=== PATIENT | male | born 1990 | race Caucasian/White ===

== ENCOUNTER 2019-12-28 23:06 | Inpatient (IN) | payer MEDICAID ==
[~2019-12-28] VITALS: Ht 170.2 cm; Wt 83.9 kg
[2019-12-28 23:20] VITALS: BP 97/76
[2019-12-28] MEDS ORDERED: NACL 0.9% 1,000 ML IV ONE (23:45)
[2019-12-28] MEDS ORDERED: ONDANSETRON 4 MG/2 ML VIAL IVP ONE (23:55)
[2019-12-29 00:10] LABS: BASOPHILS % (AUTO) 0.1 % (0.0-2.0); EOSINOPHILS # (AUTO) 0.2 K/uL (0-0.4); EOSINOPHILS % (AUTO) 1.3 % (0.0-4.0); HEMATOCRIT 22.7 % (36-52); HEMOGLOBIN 7.9 g/dL (12.0-18.0); LYMPHOCYTES # (AUTO) 6.3 K/uL (2.0-11.5); LYMPHOCYTES % (AUTO) 44.4 % (20.5-51.1); MEAN CORPUSCULAR HEMOGLOBIN 31 pg (27-31); MEAN CORPUSCULAR HGB CONC 35 g/dL (33-37); MEAN CORPUSCULAR VOLUME 89.6 fL (80-94); MONOCYTES # (AUTO) 0.8 K/uL (0.8-1.0); MONOCYTES % (AUTO) 5.3 % (1.7-9.3); NEUTROPHILS # (AUTO) 6.9 K/uL (1.8-7.7); NEUTROPHILS % (AUTO) 48.9 % (42.2-75.2); PLATELET COUNT (AUTO) 226 K/uL (140-450); RED BLOOD CELL COUNT(AUTO) 2.54 MIL/uL (4.20-6.10); RED CELL DISTRIBUTION WIDTH 12.4 % (11.6-13.7); WHITE BLOOD COUNT (AUTO) 14.1 K/uL (4.8-10.8)
[2019-12-29 00:26] LABS: ALBUMIN 3.8 g/dL (3.4-5.0); ANION GAP 13.4 (8-16); CARBON DIOXIDE 24.6 mmol/L (21-32); TOTAL BILIRUBIN 0.4 mg/dL (0.0-1.0)
[2019-12-29 00:30] LABS: PROTHROMBIN TIME 10.6 secs (10.8-13.4)
[2019-12-29 04:12] VITALS: BP 93/52
[2019-12-29] MEDS ORDERED: NACL 0.9% 1,000 ML IV ONE (05:10)
[2019-12-29] MEDS ORDERED: ACETAMINOPHEN 325 MG TAB PO PRN ×2 (05:10→06:30)
[2019-12-29] MEDS ORDERED: ONDANSETRON 4 MG/2 ML VIAL IVP PRN ×2 (05:10→06:30)
[2019-12-29] MEDS ORDERED: NACL 0.9% 500 ML IV SCH ×2 (05:25→08:01)
[2019-12-29] MEDS ORDERED: ACETAMINOPHEN 325 MG TAB ONE (05:45)
[2019-12-29] MEDS ORDERED: NACL 0.9% 1,000 ML IV SCH (06:30)
[2019-12-29] MEDS ORDERED: HYDROcodone/APAP 5/325 MG 1 TAB TAB PO PRN (06:30)
[2019-12-29] MEDS ORDERED: ZOLPIDEM 5 MG TAB PO PRN (06:30)
[2019-12-29] MEDS ORDERED: MORPHINE SULFATE 2 MG/ML SYR IVP PRN (06:30)
[2019-12-29] MEDS ORDERED: LORazepam 2 MG/ML VIAL IM/IVP PRN (06:30)
[2019-12-29] MEDS ORDERED: DOCUSATE SODIUM 100 MG GELCAP PO PRN (06:30)
[2019-12-29] MEDS ORDERED: metroNIDAZOLE 500 MG/NS PREMIX 100 ML IV SCH (07:01)
[2019-12-29 07:05] VITALS: BP 80/52
[2019-12-29 07:53] LABS: PROTHROMBIN TIME 11.3 secs (10.8-13.4)
[2019-12-29 08:13] LABS: CHOL/HDL RATIO 5.4 (1-4.5); FREE T4 (FREE THYROXINE) 1.06 ng/dL (0.76-1.46); THYROID STIMULATING HORMONE 5.22 uIU/mL (0.34-3.74)
[2019-12-29] MEDS: DEXT 5% / NACL 0.45% 1,000 ML IV SCH ×2 (08:24→16:20)
[2019-12-29 11:11] LABS: MAGNESIUM 2.6 mg/dL (1.8-2.4); PHOSPHORUS 2.5 mg/dL (2.5-4.9)
[2019-12-29] MEDS: PANTOPRAZOLE 40 MG INJ VIAL IVP SCH ×2 (11:13→20:23)
[2019-12-29] MEDS ORDERED: MIDAZOLAM 2 MG/2 ML VIAL ONE ×2 (11:58→11:59)
[2019-12-29] MEDS ORDERED: diphenhydrAMINE 50 MG/ML VIAL ONE (11:59)
[2019-12-29] MEDS ORDERED: fentaNYL citrate 0.05 MG/ML VIAL ONE (11:59)
[2019-12-29 12:00] VITALS: BP 94/50
[2019-12-29] MEDS ORDERED: fentaNYL citrate 0.05 MG/ML VIAL IVP ONE (13:50)
[2019-12-29] MEDS ORDERED: MIDAZOLAM 2 MG/2 ML VIAL IVP ONE (13:50)
[2019-12-29 16:00] VITALS: BP 95/56
[2019-12-29] MEDS: LACTULOSE 20 GM/30 ML UDC PO SCH ×2 (16:20→20:23)
[2019-12-29] MEDS: SENNA 8.6 MG TAB PO SCH (16:20)
[2019-12-29 20:00] VITALS: BP 111/66
[2019-12-29] MEDS: SUPREP BOWEL PREP KIT 354 ML SOLN.RECON PO SCH (20:23)
[2019-12-30] VITALS: BP 108/60
[2019-12-30] MEDS: DEXT 5% / NACL 0.45% 1,000 ML IV SCH ×3 (00:42→22:18)
[2019-12-30 04:00] VITALS: BP 104/51
[2019-12-30 06:00] LABS: BASOPHILS % (AUTO) 0.2 % (0.0-2.0); EOSINOPHILS # (AUTO) 0.2 K/uL (0-0.4); EOSINOPHILS % (AUTO) 2.6 % (0.0-4.0); LYMPHOCYTES # (AUTO) 3.7 K/uL (2.0-11.5); LYMPHOCYTES % (AUTO) 45.9 % (20.5-51.1); MEAN CORPUSCULAR HEMOGLOBIN 32 pg (27-31); MEAN CORPUSCULAR HGB CONC 35 g/dL (33-37); MEAN CORPUSCULAR VOLUME 91.6 fL (80-94); MONOCYTES # (AUTO) 0.4 K/uL (0.8-1.0); MONOCYTES % (AUTO) 5.4 % (1.7-9.3); NEUTROPHILS # (AUTO) 3.7 K/uL (1.8-7.7); NEUTROPHILS % (AUTO) 45.9 % (42.2-75.2); PLATELET COUNT (AUTO) 144 K/uL (140-450); RED BLOOD CELL COUNT(AUTO) 1.61 MIL/uL (4.20-6.10); RED CELL DISTRIBUTION WIDTH 12.6 % (11.6-13.7)
[2019-12-30 06:24] LABS: HEMATOCRIT 14.7 % (36-52); HEMOGLOBIN 5.1 g/dL (12.0-18.0)
[2019-12-30 06:31] LABS: ANION GAP 12.5 (8-16); CARBON DIOXIDE 23.7 mmol/L (21-32); POTASSIUM 3.2 mmol/L (3.5-5.1)
[2019-12-30 06:34] LABS: MAGNESIUM 1.8 mg/dL (1.8-2.4); PHOSPHORUS 3.5 mg/dL (2.5-4.9)
[2019-12-30 08:00] VITALS: BP 117/61
[2019-12-30] MEDS ORDERED: fentaNYL citrate 0.05 MG/ML VIAL ONE (08:03)
[2019-12-30] MEDS ORDERED: diphenhydrAMINE 50 MG/ML VIAL ONE (08:03)
[2019-12-30] MEDS ORDERED: MIDAZOLAM 2 MG/2 ML VIAL ONE (08:03)
[2019-12-30] MEDS: SENNA 8.6 MG TAB PO SCH (08:51)
[2019-12-30] MEDS: LACTULOSE 20 GM/30 ML UDC PO SCH ×2 (08:51→10:14)
[2019-12-30] MEDS: PANTOPRAZOLE 40 MG INJ VIAL IVP SCH ×2 (08:51→21:51)
[2019-12-30] MEDS: SUPREP BOWEL PREP KIT 354 ML SOLN.RECON PO SCH (08:51)
[2019-12-30 12:00] VITALS: BP 119/61
[2019-12-30] MEDS: FERROUS SULFATE 325 MG TABEC PO SCH ×2 (12:00→16:11)
[2019-12-30] MEDS ORDERED: diphenhydrAMINE 50 MG/ML VIAL IVP ONE (12:15)
[2019-12-30] MEDS ORDERED: MIDAZOLAM 2 MG/2 ML VIAL IVP ONE (12:15)
[2019-12-30] MEDS ORDERED: fentaNYL citrate 0.05 MG/ML VIAL IVP ONE (12:15)
[2019-12-30] MEDS: metroNIDAZOLE 500 MG TAB PO SCH ×2 (13:24→16:11)
[2019-12-30 14:50] LABS: BASOPHILS % (AUTO) 0.3 % (0.0-2.0); EOSINOPHILS # (AUTO) 0.2 K/uL (0-0.4); EOSINOPHILS % (AUTO) 2.8 % (0.0-4.0); HEMATOCRIT 21.9 % (36-52); HEMOGLOBIN 7.6 g/dL (12.0-18.0); LYMPHOCYTES % (AUTO) 38.7 % (20.5-51.1); MEAN CORPUSCULAR HEMOGLOBIN 31 pg (27-31); MEAN CORPUSCULAR HGB CONC 35 g/dL (33-37); MEAN CORPUSCULAR VOLUME 89.9 fL (80-94); MONOCYTES # (AUTO) 0.4 K/uL (0.8-1.0); NEUTROPHILS # (AUTO) 4.2 K/uL (1.8-7.7); NEUTROPHILS % (AUTO) 53.2 % (42.2-75.2); PLATELET COUNT (AUTO) 136 K/uL (140-450); RED BLOOD CELL COUNT(AUTO) 2.44 MIL/uL (4.20-6.10); RED CELL DISTRIBUTION WIDTH 13.3 % (11.6-13.7); WHITE BLOOD COUNT (AUTO) 7.8 K/uL (4.8-10.8)
[2019-12-30 16:00] VITALS: BP_SYST 110; BP_SYST 136; BP_DIAS 65; BP_DIAS 89
[2019-12-30] MEDS ORDERED: POTASSIUM CHLORIDE 20% 40 MEQ/15 ML UDC PO SCH (16:01)
[2019-12-30] MEDS: AMOXICILLIN 500 MG CAP PO SCH (21:51)
[2019-12-30] MEDS: CLARITHROMYCIN 500 MG TAB PO SCH (21:51)
[2019-12-31] VITALS: BP 113/64
[2019-12-31 00:44] LABS: APPEARANCE,URINE CLEAR (CLEAR); BILIRUBIN,URINE NEGATIVE (NEGATIVE); BLOOD, URINE NEGATIVE (NEGATIVE); COLOR,URINE YELLOW (YELLOW); LEUKOCYTE ESTERASE ,URINE NEGATIVE (NEGATIVE); NITRITE, URINE NEGATIVE (NEGATIVE); PH,URINE 6.5 (5.0-9.0); UGLUCOSE NEGATIVE (NEGATIVE)
[2019-12-31 00:57] LABS: BARBITURATE, URINE NEGATIVE ng/ml (NEG <=200); BENZODIAZEPINE, URINE NEGATIVE ng/mL (NEG <=200); CANNABINOID, URINE NEGATIVE ng/mL (NEG <=50); COCAINE, URINE NEGATIVE ng/mL (NEG <=300); OPIATE, URINE NEGATIVE ng/mL (NEG <=2000); PHENCYCLIDINE SCREEN,URINE NEGATIVE ng/mL (NEG <=25)
[2019-12-31 06:07] LABS: BASOPHILS % (AUTO) 0.2 % (0.0-2.0); EOSINOPHILS # (AUTO) 0.3 K/uL (0-0.4); EOSINOPHILS % (AUTO) 3.6 % (0.0-4.0); HEMATOCRIT 23.6 % (36-52); HEMOGLOBIN 8.2 g/dL (12.0-18.0); LYMPHOCYTES # (AUTO) 3.6 K/uL (2.0-11.5); LYMPHOCYTES % (AUTO) 49.7 % (20.5-51.1); MEAN CORPUSCULAR HEMOGLOBIN 31 pg (27-31); MEAN CORPUSCULAR HGB CONC 35 g/dL (33-37); MEAN CORPUSCULAR VOLUME 88.9 fL (80-94); MONOCYTES # (AUTO) 0.5 K/uL (0.8-1.0); MONOCYTES % (AUTO) 6.3 % (1.7-9.3); NEUTROPHILS # (AUTO) 2.9 K/uL (1.8-7.7); NEUTROPHILS % (AUTO) 40.2 % (42.2-75.2); PLATELET COUNT (AUTO) 162 K/uL (140-450); RED BLOOD CELL COUNT(AUTO) 2.65 MIL/uL (4.20-6.10); RED CELL DISTRIBUTION WIDTH 13.5 % (11.6-13.7); WHITE BLOOD COUNT (AUTO) 7.3 K/uL (4.8-10.8)
[2019-12-31 06:29] LABS: ANION GAP 8.6 (8-16); CARBON DIOXIDE 27.1 mmol/L (21-32); CREATININE 1.1 mg/dL (0.6-1.3); POTASSIUM 3.7 mmol/L (3.5-5.1)
[2019-12-31 06:51] LABS: PHOSPHORUS 3.8 mg/dL (2.5-4.9)
[2019-12-31 08:00] VITALS: BP 102/54
[2019-12-31] MEDS: PANTOPRAZOLE 40 MG INJ VIAL IVP SCH (08:16)
[2019-12-31] MEDS: CLARITHROMYCIN 500 MG TAB PO SCH (08:17)
[2019-12-31] MEDS: AMOXICILLIN 500 MG CAP PO SCH (08:17)
[2019-12-31] MEDS: LACTULOSE 20 GM/30 ML UDC PO SCH (08:17)
[2019-12-31] MEDS: metroNIDAZOLE 500 MG TAB PO SCH ×2 (08:17→11:49)
[2019-12-31] MEDS: FERROUS SULFATE 325 MG TABEC PO SCH ×2 (08:17→11:49)
[2019-12-31] MEDS ORDERED: NICOTINE TRANSD SYS 14 MG/24 HR PATCH TD SCH (09:00)
[2019-12-31] MEDS ORDERED: CLAR500T14 PO (15:43)
[2019-12-31] MEDS ORDERED: AMOX500C25 PO (15:43)
[2019-12-31] MEDS ORDERED: OMEP20TC10 PO (15:43)
[2019-12-31 15:49] VITALS: BP 102/54
== END 2019-12-31 16:45 | disposition home or self-care (01) | DRG 243 ==
LOC: MED 23:06 → MTU 12-29 02:47
PROVIDERS: ADMIT Family Medicine; ATTEND Family Medicine
PROC: 0DB68ZX Excision of Stomach, Via Natural or Artificial Opening Endoscopic, Diagnostic (ICD-10-PCS; 2019-12-29)
PROC: 0DJD8ZZ Inspection of Lower Intestinal Tract, Via Natural or Artificial Opening Endoscopic (ICD-10-PCS; 2019-12-30)
PROC: 30233N1 Transfusion of Nonautologous Red Blood Cells into Peripheral Vein, Percutaneous Approach (ICD-10-PCS; principal; 2019-12-30 08:30)
DX: K21.9 Gastro-esophageal reflux disease without esophagitis (principal); K26.4 Chronic or unspecified duodenal ulcer with hemorrhage; K22.11 Ulcer of esophagus with bleeding; K25.4 Chronic or unspecified gastric ulcer with hemorrhage; R65.10 Systemic inflammatory response syndrome (SIRS) of non-infectious origin without acute organ dysfunction; Z20.828 Contact with and (suspected) exposure to other viral communicable diseases; F17.210 Nicotine dependence, cigarettes, uncomplicated; K40.90 Unilateral inguinal hernia, without obstruction or gangrene, not specified as recurrent; E83.41 Hypermagnesemia; E87.6 Hypokalemia; D64.9 Anemia, unspecified
CPT/HCPCS: 36415; 36430; 71045; 80048; 80053; 80305; 81003; 82150; 82272; 83036; 83690; 83735; 83880; 84100; 84439; 84443; 84484; 85025; 85610; 85730; 86677; 86886; 86900; 86901; 86920; 87040; 87081; 87086; 93005; 96361; 96374; 99285; C9113; J0696; J1200; J2250; J2270; J2405; J3010; J3490; J7030; J7060; P9016